=== PATIENT | male | born 1940 | race Caucasian/White ===

== ENCOUNTER 2018-12-28 13:10 | Emergency (ER) | payer MEDICARE ==
--- NOTE | 2018-12-28 13:32 | Emergency Department Record ---
History of Present Illness - General Chief complaint: Extremity Problem Stated complaint: MAY HAVE A BLOOD CLOT Time Seen by Provider: 12/28/18 13:16 Source: Patient Mode of Arrival: Ambulatory Limitations: No limitations - History of Present Illness Initial comments: The patient is here due to R lower leg pain and numbness for 2 days. He is able to walk with a slight limp and does have very mild pain with walking. The patient does have a hx of an arterial problem with the R arm a few months ago and did need a procedure to try to remove the clot. Since that time he has been on Xarelto but has not been taking it regularly. The patient also states he may have a hx of Afib. but he takes no medicines for it. He denies any CP, SOB, BAILEY, MERCEDES, or back pain. MD Complaint: Extremity pain Onset/Timin -: Days(s) Location: Right, Lower Leg Severity scale (1-10): 3 Quality: Aching Consistency: Constant Improves with: Nothing Worsens with: Nothing Associated Symptoms: Denies other symptoms - Related Data Home Medications Medication Instructions Recorded Confirmed Last Taken Rivaroxaban [Xarelto] 10 mg PO DAILY 12/28/18 12/28/18 Unknown Allergies Allergy/AdvReac Type Severity Reaction Status Date / Time No Known Drug Allergies Allergy Verified 12/28/18 13:23 Travel Screening - Travel/Exposure Within Last 30 Days Have you traveled within the last 30 days?: No Review of Systems Constitutional: Denies: Chills, Fever Eyes: Denies: Eye discharge ENT: Denies: Congestion Respiratory: Denies: Cough, Dyspnea Cardiovascular: Denies: Arrhythmia Endocrine: Denies: Fatigue Gastrointestinal: Denies: Nausea Genitourinary: Denies: Dysuria Musculoskeletal: Denies: Arthralgia Skin: Denies: Bruising Past Medical History - SOCIAL HISTORY Smoking Status: Former smoker Alcohol Use: Rare Drug Use: None - RESPIRATORY Hx Respiratory Disorders: No - CARDIOVASCULAR Hx Cardio Disorders: Yes Hx Deep Vein Thrombosis: Yes Hx Palpitations: Yes (Afib) - NEURO Hx Neuro Disorders: No - GI Hx GI Disorders: No - Hx Genitourinary Disorders: No - ENDOCRINE Hx Endocrine Disorders: No - MUSCULOSKELETAL Hx Musculoskeletal Disorders: Yes Hx Arthritis: Yes Hx Gout: Yes - PSYCH Hx Psych Problems: No - HEMATOLOGY/ONCOLOGY Hx Hematology/Oncology Disorders: No Family Medical History Any Significant Family History?: No Physical Exam - General General Appearance: Alert, Oriented x3, Cooperative, No acute distress - Head Head exam: Atraumatic, Normocephalic - Eye Eye exam: Normal appearance, PERRL - ENT Throat exam: Normal inspection. negative: Tonsillar erythema, Tonsillar exudate - Neck Neck exam: Normal inspection, Full ROM. negative: Tenderness - Respiratory Respiratory exam: Normal lung sounds bilaterally. negative: Respiratory distress - Cardiovascular Cardiovascular Exam: Regular rate, Normal rhythm, Normal heart sounds. negative: Diastolic murmur, Systolic murmur - GI/Abdominal GI/Abdominal exam: Soft, Normal bowel sounds. negative: Tenderness - Extremities Extremities exam: Full ROM, Other (The R foot is clearly mildly to moderately ischemic with pale toes and no capillary refill. He does have decreased sensation to the foot to the ankle with mild coolness to the foot. The motor function is intact to the F leg and foot.). negative: Normal inspection, Pedal edema, Tenderness Course Vital Signs 12/28/18 13:14 Temperature 98.0 F Pulse Rate 87 Respiratory 20 Rate Blood Pressure 216/139 Pulse Ox 97 - Reevaluation(s) Reevaluation #1: The patient does state he did take his Xarelto yesterday and the day prior but not today. 12/28/18 14:01 Reevaluation #2: The patient is doing well at this time. He denies any R leg or foot pain and has goof flexion and extension of the foot and ankle. I did discuss the Arterial test with him and he would like to go to [facility] for treatment. I then did discuss the case and findings with Dr. Rodrigez at [facility] and he did agree to consult on the case. I also did discuss the case with Dr. Bucio and he will accept the patient as a direct admission. 12/28/18 15:07 Medical Decision Making - Data Complexity MDM Data: Labs Ordered and/or Reviewed, X-Ray Ordered and/or Reviewed, EKG Ordered and/or Reviewed - Lab Data Result diagrams: 12/28/18 13:35 12/28/18 13:35 - EKG Data -: EKG Interpreted by Me EKG: Abnormal EKG (Afib at 70, Incomplete LBBB, (NO old EKG for comparison)) - Radiology Data Radiology results: Report reviewed (R leg arterial study: No flow below popliteal artery.) Disposition Disposition: Transfer Clinical Impression: Arterial insufficiency of lower extremity Disposition: Acute Care Hospital Transfer Transfer To: [facility] Reason For Transfer: Vascular Surgery Accepting Physician: Fortunato Time Discussed w/Accepting Physician: 15:08 Condition: (2) Stable Forms: Patient Portal Access Time of Disposition: 15:09 Quality - Quality Measures Quality Measures: N/A - Blood Pressure Screening View Details: Yes Does Patient Have Any of the Following: No Blood Pressure Classification: Hypertensive Reading Systolic Measurement: 203 Diastolic Measurement: 94 Screening for High Blood Pressure: < First Hypertensive BP, F/U Documented > [G8950] First Hypertensive Follow-up Interventions: Referral to alternative/primary care provider.
[2018-12-28 13:51] LABS: ABSOLUTE NEUTROPHIL COUNT 6.71; BASO % 0.3 % (0-6); EOS % 0.6 % (0-6); GRAN % 67.6 % (47-80); HEMATOCRIT 48.9 % (42.0-52.0); HEMOGLOBIN 15.8 gm/dl (14.0-18.0); LYMPH % 20.1 % (16-45); MEAN CORPUSCULAR HEMOGLOBIN 27.1 pg (27-33); MEAN CORPUSCULAR HGB CONC 32.3 g/dl (32-36); MEAN PLATELET VOLUME 9.3 fl (7.4-10.4); MONO % 11.4 % (0-9); PLATELET COUNT 362 K/uL (130-400); RED BLOOD COUNT 5.82 M/uL (4.40-5.70); RED CELL DISTRIBUTION WIDTH 14.9 % (11.5-14.5); WHITE BLOOD COUNT W/O DIFF 9.9 K/uL (4.2-12.2)
[2018-12-28 14:03] LABS: BLOOD UREA NITROGEN 14 mg/dL (8-23); CREATININE 0.8 mg/dL (0.7-1.2); EST GLOMERULAR FILTRATION RATE > 60 mL/min
[2018-12-28 14:05] LABS: GLUCOSE,RANDOM 119 mg/dL (74-109); INR 1.1; PARTIAL THROMBOPLASTIN TIME 31.1 SECONDS (24.5-39.1); PROTHROMBIN TIME (PATIENT) 11.5 SECONDS (9.5-12.1)
[2018-12-28 14:08] LABS: ALB/GLOB RATIO 1.1 (1.1-1.8); ALBUMIN 4.1 g/dL (4.0-5.0); ALKALINE PHOSPHATASE 95 U/L (40-129); ALT/SGPT 14 U/L (<41); AST/SGOT 25 U/L (10.0-50.0)
[2018-12-28] MEDS ORDERED: HEPARIN SODIUM 1000 UNIT/1 ML 10ML VIAL IVP ONE (14:46)
[2018-12-28] MEDS ORDERED: HEPARIN SODIUM/D5W 25,000 UNITS/500 ML BAG IV SCH (15:00)
--- NOTE | 2018-12-28 15:55 | ULTRASOUND REPORT ---
EXAMINATION: Complete Right Lower Extremity Arterial Duplex Doppler Imaging EXAM DATE: 12/28/2018 3:20 PM TECHNIQUE: Color Doppler, spectral Doppler, and cunningham scale ultrasound evaluation of the right lower extremity arteries was performed. Images recorded and stored on PACS. INDICATION: Right leg ischemia. Patient reports right lower extremity pain for 2 days; claudication with rest pain and cold foot. COMPARISON: None FINDINGS: RIGHT lower extremity arteries PSV (cm/s) Common femoral............. 93, biphasic to triphasic Deep femoral.................. 78, biphasic to triphasic Superficial femoral, prox... 73, biphasic Superficial femoral, mid.... 37, biphasic Superficial femoral, distal.. 15, monophasic thrombosis is noted beyond the distal femoral artery. Popliteal.......................... Thrombosis Posterior tibial................. Thrombosis Peroneal......................... Thrombosis Anterior tibial................... Thrombosis Dorsalis pedis................. Thrombosis There is hypoechoic thrombus of the distal aspect of the superficial femoral artery with clot extendi ng into the popliteal artery and branch vessels below the knee with no discernible flow. Underlying a therosclerotic vascular calcifications throughout the right lower extremity arteries. IMPRESSION: 1. Thrombosis of the distal SFA, popliteal artery, and below the knee branch vessels. Recommend [facility] ular surgery consultation. A Red Critical Result was communicated to Dr. Whitt at 12/28/2018 3:53 PM. Dictated by: Mario Almazan MD on 12/28/2018 3:44 PM. .
--- NOTE | 2018-12-28 18:11 | Emergency Department Record ---
History of Present Illness - General Chief complaint: Extremity Problem Stated complaint: MAY HAVE A BLOOD CLOT Time Seen by Provider: 12/28/18 13:16 Source: Patient Mode of Arrival: Ambulatory Limitations: No limitations - History of Present Illness Onset/Timin -: Days(s) Location: Right, Lower Leg Severity scale (1-10): 3 Quality: Aching Consistency: Constant Improves with: Nothing Worsens with: Nothing Associated Symptoms: Denies other symptoms - Related Data Home Medications Medication Instructions Recorded Confirmed Last Taken Rivaroxaban [Xarelto] 10 mg PO DAILY 12/28/18 12/28/18 Unknown Allergies Allergy/AdvReac Type Severity Reaction Status Date / Time No Known Drug Allergies Allergy Verified 12/28/18 13:23 Travel Screening - Travel/Exposure Within Last 30 Days Have you traveled within the last 30 days?: No Review of Systems Constitutional: Denies: Chills, Fever Eyes: Denies: Eye discharge ENT: Denies: Congestion Respiratory: Denies: Cough, Dyspnea Cardiovascular: Denies: Arrhythmia Endocrine: Denies: Fatigue Gastrointestinal: Denies: Nausea Genitourinary: Denies: Dysuria Musculoskeletal: Denies: Arthralgia Skin: Denies: Bruising Past Medical History - SOCIAL HISTORY Smoking Status: Former smoker Alcohol Use: Rare Drug Use: None - RESPIRATORY Hx Respiratory Disorders: No - CARDIOVASCULAR Hx Cardio Disorders: Yes Hx Deep Vein Thrombosis: Yes Hx Palpitations: Yes (Afib) - NEURO Hx Neuro Disorders: No - GI Hx GI Disorders: No - Hx Genitourinary Disorders: No - ENDOCRINE Hx Endocrine Disorders: No - MUSCULOSKELETAL Hx Musculoskeletal Disorders: Yes Hx Arthritis: Yes Hx Gout: Yes - PSYCH Hx Psych Problems: No - HEMATOLOGY/ONCOLOGY Hx Hematology/Oncology Disorders: No Family Medical History Any Significant Family History?: No Physical Exam - General Limitations: No limitations - Neurological Neurological exam: Alert, Normal gait, Oriented X3. negative: Abnormal gait, Altered - Skin Skin exam: negative: Rash Course Vital Signs 12/28/18 12/28/18 12/28/18 13:14 14:03 15:58 Temperature 98.0 F Pulse Rate 87 61 Respiratory 20 18 Rate Blood Pressure 216/113 203/94 Blood Pressure 196/98 [Left Arm] Pulse Ox 97 95 Medical Decision Making - Lab Data Result diagrams: 12/28/18 13:35 12/28/18 13:35 Lab Results 12/28/18 12/28/18 12/28/18 Range/Units 13:35 13:35 13:35 WBC 9.9 (4.2-12.2) K/uL RBC 5.82 H (4.40-5.70) M/uL Hgb 15.8 (14.0-18.0) gm/dl Hct 48.9 (42.0-52.0) % MCV 84.0 (81-97) fl MCH 27.1 (27-33) pg MCHC 32.3 (32-36) g/dl RDW 14.9 H (11.5-14.5) % Plt Count 362 (130-400) K/uL MPV 9.3 (7.4-10.4) fl Gran % 67.6 (47-80) % Lymphocytes % 20.1 (16-45) % Monocytes % 11.4 H (0-9) % Eosinophils % 0.6 (0-6) % Basophils % 0.3 (0-6) % Absolute Neutrophils 6.71 PT 11.5 (9.5-12.1) SECONDS INR 1.1 APTT 31.1 (24.5-39.1) SECONDS Sodium 136 (136-145) mmol/L Potassium 3.7 (3.4-4.5) mmol/L Chloride 98 (98-107) mmol/L Carbon Dioxide 22.0 (22-29) mmol/L Anion Gap 16.0 (7-16) BUN 14 (8-23) mg/dL Creatinine 0.8 (0.7-1.2) mg/dL Estimated GFR > 60 mL/min Random Glucose 119 H (74-109) mg/dL Calcium 9.2 (8.8-10.2) mg/dL Total Bilirubin 1.50 H (0.2-1.0) mg/dL AST 25 (10.0-50.0) U/L ALT 14 (<41) U/L Alkaline Phosphatase 95 (40-129) U/L Total Protein 8.0 (6.6-8.7) g/dL Albumin 4.1 (4.0-5.0) g/dL Globulin 3.9 (1.4-4.8) gm/dL Albumin/Globulin Ratio 1.1 (1.1-1.8) Disposition Clinical Impression: Arterial insufficiency of lower extremity Disposition: Acute Care Hospital Transfer Condition: (2) Stable Forms: Patient Portal Access Quality - Quality Measures Quality Measures: N/A - Blood Pressure Screening View Details: Yes Does Patient Have Any of the Following: No Blood Pressure Classification: Hypertensive Reading Systolic Measurement: 203 Diastolic Measurement: 94 Screening for High Blood Pressure: < First Hypertensive BP, F/U Documented > [G8950] First Hypertensive Follow-up Interventions: Referral to alternative/primary care provider.
== END 2018-12-28 16:12 | disposition short-term general hospital (02) ==
LOC: ER 13:10
DX: I74.3 Embolism and thrombosis of arteries of the lower extremities (principal); I48.91 Unspecified atrial fibrillation; Z79.01 Long term (current) use of anticoagulants; Z87.891 Personal history of nicotine dependence
CPT/HCPCS: 80053; 85025; 85610; 85730; 93005; 93010; 96365; 96375; 99285